=== PATIENT | male | born 1990 | race Two or more races ===

== ENCOUNTER 2017-01-11 11:42 | Emergency (ER) | payer MEDICAID, SELFPAY ==
[~2017-01-11] VITALS: Ht 177.8 cm; Wt 76.5 kg
[2017-01-11] MEDS ORDERED: SODIUM CHLORIDE 0.9% 1,000 ML IV ONE (12:08)
[2017-01-11] MEDS ORDERED: SODIUM CHLORIDE FLUSH 10ML SYR IVF ONE (12:30)
[2017-01-11] MEDS ORDERED: SODIUM CHLORIDE 0.9% 1,000ML IVBOLUS ONE (12:30)
[2017-01-11] MEDS ORDERED: ONDANSETRON 2MG/ML, 2ML IVPush ONE (12:30)
[2017-01-11 12:38] LABS: HEMATOCRIT 53.2 % (39.2-51.8); WHITE BLOOD COUNT 14.5 x10^3/uL (3.4-10)
[2017-01-11] MEDS ORDERED: ONDANSETRON 2MG/ML, 2ML ONE (12:45)
[2017-01-11 12:51] LABS: ASPARTATE AMINO TRANSFERASE 22 U/L (15-37); BLOOD UREA NITROGEN 10 mg/dL (7-18)
[2017-01-11] MEDS ORDERED: LORazepam 2 MG/ML, 1ML ONE ×2 (12:56→14:16)
[2017-01-11] MEDS: LORazepam 2 MG/ML, 1ML IVPush PRN ×2 (13:01→14:30)
[2017-01-11 15:02] VITALS: BP 115/67
== END 2017-01-11 16:23 | disposition home or self-care (01) ==
LOC: ED 14:34
DX: F10.239 Alcohol dependence with withdrawal, unspecified (principal); F32.9 Major depressive disorder, single episode, unspecified; Y90.9 Presence of alcohol in blood, level not specified
CPT/HCPCS: 36415; 74020; 80053; 81001; 82550; 83690; 85025; 96361; 96374; 96375; 96376; 99285; J2060; J2405; J7030

== ENCOUNTER 2018-03-28 06:55 | Emergency (ER) | payer OTHER ==
[~2018-03-28] VITALS: Ht 172.7 cm; Wt 81.6 kg
--- NOTE | 2018-03-28 07:15 | NUR ---
PT TO RM 15. PT STATES HE USED TO DRINK ALL THE TIME BUT NOW HE DOESN'T. FURTHER STATES HE DID DRINK 4 BEERS YESTERDAY THOUGH. THROUGH THE NIGHT HE HAS VOMITED AND SAW BLOOD IN IT, HAS HAD DIARRHEA AND HIS ABDOMEN HURTS. PT IS NAUSEATED AT THIS TIME. AWAITING EVAL
--- NOTE | 2018-03-28 07:18 | NUR ---
TO BATHROOM AND WILL OBTAIN URINE SAMPLE
[2018-03-28] MEDS ORDERED: ONDANSETRON 2MG/ML, 2ML ONE (07:59)
[2018-03-28] MEDS ORDERED: FAMOTIDINE 20 MG/2 ML ONE (07:59)
[2018-03-28] MEDS ORDERED: SODIUM CHLORIDE FLUSH 10ML SYR IVF ONE (08:00)
[2018-03-28] MEDS ORDERED: FAMOTIDINE 20 MG/2 ML IVP ONE (08:00)
[2018-03-28] MEDS ORDERED: ONDANSETRON 2MG/ML, 2ML IVPush ONE (08:00)
--- NOTE | 2018-03-28 08:07 | NUR ---
IV ESTABLISHED AND MEDICATED PER ORDERS
[2018-03-28 08:08] VITALS: BP 129/78
[2018-03-28 08:08] LABS: BASOPHILS # (AUTO) 0.03 x10^3/uL (0-0.1); BASOPHILS % (AUTO) 0 % (0-1); EOSINOPHILS # (AUTO) 0.02 x10^3/uL (0-0.4); EOSINOPHILS % (AUTO) 0 % (1-7); LYMPHOCYTES % (AUTO) 19 % (22-44); MD NO; MEAN CORPUSCULAR HEMOGLOBIN 30.5 pg (27.5-34.5); MEAN CORPUSCULAR VOLUME 92.6 fL (81-97); MEAN PLATELET VOLUME 6.7 fL (7.4-10.4); MONOCYTES % (AUTO) 5 % (2-9); NEUTROPHILS # (AUTO) 7.24 x10^3/uL (1.8-6.8); NEUTROPHILS % (AUTO) 76 % (42-75); PLATELET COUNT 387 x10^3/uL (130-400); RED BLOOD COUNT 5.33 x10^6/uL (4.38-5.82); RED CELL DISTRIBUTION WIDTH 13.9 % (9.4-14.8)
[2018-03-28 08:19] LABS: ALANINE AMINOTRANSFERASE 26 U/L (12-78); ALBUMIN 4.2 g/dL (3.4-5.0); ANION GAP 7 mmol/L (5-15); CALCIUM 9.4 mg/dL (8.5-10.1); CHLORIDE 104 mmol/L (98-107); CREATININE 0.84 mg/dL (0.7-1.3)
[2018-03-28 08:21] LABS: ALKALINE PHOSPHATASE 85 U/L (45-117); BILIRUBIN,TOTAL 0.5 mg/dL (0.2-1.0); TOTAL PROTEIN 8.6 g/dL (6.4-8.2)
--- NOTE | 2018-03-28 08:36 | NUR ---
PT STATES ABDOMINAL PAIN 2/10 AND NO NAUSEA SINCE MEDICATED
== END 2018-03-28 09:04 | disposition home or self-care (01) ==
LOC: ED 08:59
DX: K29.21 Alcoholic gastritis with bleeding (principal); R11.2 Nausea with vomiting, unspecified
CPT/HCPCS: 36415; 80053; 83690; 85025; 96374; 96375; 99283; J2405; J3490

== ENCOUNTER 2018-12-24 16:31 | Emergency (ER) | payer MEDICAID, OTHER ==
[~2018-12-24] VITALS: Ht 177.8 cm; Wt 81.0 kg
[2018-12-24 16:42] VITALS: BP 122/66
[2018-12-24] MEDS ORDERED: LIDOCAINE-MPF 1%, 5ML INFIL ONE (17:30)
[2018-12-24] MEDS ORDERED: BUPIVACAINE/PF-EPI 0.25% 1:200K SQ ONE (17:30)
[2018-12-24] MEDS ORDERED: BUPIVACAINE 0.25% ONE (17:34)
[2018-12-24] MEDS ORDERED: LIDOCAINE-MPF 1%, 5ML ONE (17:34)
--- NOTE | 2018-12-24 18:08 | NUR ---
Patient/Caregiver given discharge instructions and they have confirmed that they understand the instructions. Patient ambulatory with steady gait.
== END 2018-12-24 18:13 | disposition home or self-care (01) ==
LOC: ED 18:07
DX: K04.7 Periapical abscess without sinus (principal); F17.210 Nicotine dependence, cigarettes, uncomplicated
CPT/HCPCS: 41800; 96372; 99283

== ENCOUNTER 2019-01-16 04:01 | Emergency (ER) | payer MEDICAID ==
[~2019-01-16] VITALS: Ht 177.8 cm; Wt 76.4 kg
[2019-01-16 04:05] VITALS: BP 125/84
--- NOTE | 2019-01-16 04:14 | NUR ---
PT AMBULATES FROM TRIAGE TO ROOM WITH STEADY GAIT. AWAITING ERP AT THIS TIME.
--- NOTE | 2019-01-16 04:18 | NUR ---
PT WALKED INTO ROOM AND STATES "I WANT TO GO HOME" AND WALKED STRAIGHT OUT TO LOBBY. PT NOT SEEN BY A PROVIDER PRIOR TO DECISION TO LEAVE.
--- NOTE | 2019-01-16 04:18 | NUR ---
patient left, states he wanted to leave without seeing a doctor.
== END 2019-01-16 04:20 | disposition left against medical advice (07) ==
LOC: ED 04:18
DX: K92.0 Hematemesis (principal); Z53.21 Procedure and treatment not carried out due to patient leaving prior to being seen by health care provider

== ENCOUNTER 2019-03-26 18:45 | Emergency (ER) | payer MEDICAID ==
[~2019-03-26] VITALS: Ht 177.8 cm; Wt 81.0 kg
[2019-03-26 18:59] VITALS: BP 143/71
--- NOTE | 2019-03-26 19:08 | NUR ---
Pt presents to ed c/o si w/ plan to utilize gun from home to harm self. Pt pawned gun yesterday in fear of using on self. Pt states strife at home w/ his family that has precipitated events recently. States in last 5 days he has been binge drinking "whatever i can get my hands on" does not chronically drink a lot of etoh. Pt tachycardic and nauseated, but no other signs of w/d at this time. All belongings placed in 2/2 belongings bags and placed in locker. Roller doors in place. Sitter in hallway.
[2019-03-26 19:27] LABS: BASOPHILS # (AUTO) 0.01 x10^3/uL (0-0.1); BASOPHILS % (AUTO) 0 % (0-1); EOSINOPHILS # (AUTO) 0.01 x10^3/uL (0-0.4); EOSINOPHILS % (AUTO) 0 % (1-7); LYMPHOCYTES # (AUTO) 1.75 x10^3/uL (1-3.4); LYMPHOCYTES % (AUTO) 28 % (22-44); MD NO; MEAN CORPUSCULAR HEMOGLOBIN 31.4 pg (27.5-34.5); MEAN CORPUSCULAR HGB CONC 33.5 g/dL (33.2-36.2); MEAN CORPUSCULAR VOLUME 93.7 fL (81-97); MEAN PLATELET VOLUME 6.7 fL (7.4-10.4); MONOCYTES # (AUTO) 0.58 x10^3/uL (0.2-0.8); MONOCYTES % (AUTO) 9 % (2-9); NEUTROPHILS # (AUTO) 3.93 x10^3/uL (1.8-6.8); NEUTROPHILS % (AUTO) 63 % (42-75); PLATELET COUNT 379 x10^3/uL (130-400); RED BLOOD COUNT 5.04 x10^6/uL (4.38-5.82); RED CELL DISTRIBUTION WIDTH 14.4 % (9.4-14.8)
[2019-03-26 19:39] LABS: ALBUMIN 4.2 g/dL (3.4-5.0); ANION GAP 8 mmol/L (5-15); CALCIUM 9.1 mg/dL (8.5-10.1); CHLORIDE 107 mmol/L (98-107)
[2019-03-26 19:41] LABS: SALICYLATE LEVEL < 1.7 mg/dL (2.8-20.0)
[2019-03-26 19:42] LABS: ALANINE AMINOTRANSFERASE 27 U/L (12-78); ALKALINE PHOSPHATASE 89 U/L (45-117); BILIRUBIN,TOTAL 0.4 mg/dL (0.2-1.0); CREATININE 1.01 mg/dL (0.7-1.3); TOTAL PROTEIN 8.4 g/dL (6.4-8.2)
--- NOTE | 2019-03-26 20:12 | NUR ---
Pt amb w/ steady gait to rr and supplied ua. Sent to lab. C/o increased nausea. Inquired about nausea meds. Awaiting new orders.
[2019-03-26] MEDS ORDERED: ONDANSETRON ODT 4 MG ONE (20:14)
[2019-03-26] MEDS ORDERED: ONDANSETRON ODT 4 MG PO ONE (20:30)
[2019-03-26 20:31] LABS: AMPHETAMINE SCREEN, URINE Positive (Negative); BARBITURATE SCREEN, URINE Negative (Negative); BENZODIAZEPINE SCREEN, URINE Negative (Negative); CANNABINOID SCREEN, URINE Positive (Negative); COCAINE SCREEN, URINE Negative (Negative); METHADONE SCREEN, URINE Negative (Negative); OPIATE SCREEN, URINE Negative (Negative)
--- NOTE | 2019-03-26 21:12 | NUR ---
Pt resting comfortably on gurney. Rr even and unlabored. Nadn.
[2019-03-26] MEDS ORDERED: PROMETHAZINE 25 MG/ML, 1ML ONE (22:24)
--- NOTE | 2019-03-26 22:31 | NUR ---
Pt still nauseated and dry heaving. Pa made aware. Pa verbal order of 25 mg phenergan im.
[2019-03-26] MEDS ORDERED: PROMETHAZINE 25 MG/ML, 1ML IM ONE (23:00)
--- NOTE | 2019-03-27 00:10 | NUR ---
PT sleeping comfortably on gurney. Rr even and unlabored. Nadn. Awaiting telepsych.
--- NOTE | 2019-03-27 00:41 | NUR ---
Telepsych consulted on pt. Awaiting telepsych.
--- NOTE | 2019-03-27 01:00 | NUR ---
Report to Alexi BELL.
--- NOTE | 2019-03-27 01:01 | NUR ---
Previous RN placed telepsych computer and lumber kiln operator in the same room. Established communication between the three. Awaiting completion of consult
--- NOTE | 2019-03-27 02:48 | NUR ---
PSYCH PACKET FAXED TO [facility].
--- NOTE | 2019-03-27 03:34 | NUR ---
DECLINED BY [facility] DUE TO STAFFING.
--- NOTE | 2019-03-27 03:34 | NUR ---
PATIENT EXCEPTED BY [facility] . TRANSPORT TO SET FOR [id number]
--- NOTE | 2019-03-27 05:37 | NUR ---
REM HERE TO TRANSPORT PATIENT TO [facility].
== END 2019-03-27 05:49 ==
LOC: ED 03-27
DX: R45.851 Suicidal ideations (principal); F32.9 Major depressive disorder, single episode, unspecified; F41.9 Anxiety disorder, unspecified
CPT/HCPCS: 36415; 80053; 80307; 85025; 96372; 99285; J2550; Q0162

== ENCOUNTER 2019-05-21 08:22 | Emergency (ER) | payer MEDICAID ==
[~2019-05-21] VITALS: Ht 177.8 cm; Wt 87.8 kg
--- NOTE | 2019-05-21 08:47 | NUR ---
PT TO ROOM.
[2019-05-21 09:25] LABS: BASOPHILS # (AUTO) 0.03 x10^3/uL (0-0.1); BASOPHILS % (AUTO) 0 % (0-1); EOSINOPHILS # (AUTO) 0.17 x10^3/uL (0-0.4); EOSINOPHILS % (AUTO) 3 % (1-7); LYMPHOCYTES % (AUTO) 26 % (22-44); MD NO; MEAN CORPUSCULAR HEMOGLOBIN 30.6 pg (27.5-34.5); MEAN CORPUSCULAR HGB CONC 32.9 g/dL (33.2-36.2); MEAN CORPUSCULAR VOLUME 93.2 fL (81-97); MEAN PLATELET VOLUME 6.4 fL (7.4-10.4); MONOCYTES # (AUTO) 0.58 x10^3/uL (0.2-0.8); MONOCYTES % (AUTO) 9 % (2-9); NEUTROPHILS # (AUTO) 3.98 x10^3/uL (1.8-6.8); NEUTROPHILS % (AUTO) 62 % (42-75); PLATELET COUNT 426 x10^3/uL (130-400); RED BLOOD COUNT 4.25 x10^6/uL (4.38-5.82); RED CELL DISTRIBUTION WIDTH 13.1 % (9.4-14.8)
--- NOTE | 2019-05-21 09:37 | NUR ---
PT STS LEG SWLLING BILAT X1 MONTH. SCAB/INFLAMMATION TO FRONT AND BACK L LEG X2 DAYS. METH ADDICT, MUTLITPLE SCABS/PICKING ON LEGS. STS STOPPED DRINKING/DRUGS 5 DAYS AGO. DENEIS HX SEIZURES. STS ITCHING ON LEGS BUT PAIN IN L LEG WHEN WALKING. HOMELESS. AWAITING LAB RESULTS.
[2019-05-21 09:39] LABS: ALANINE AMINOTRANSFERASE 25 U/L (12-78); ANION GAP 6 mmol/L (5-15); CALCIUM 8.2 mg/dL (8.5-10.1); CHLORIDE 113 mmol/L (98-107); CREATININE 0.93 mg/dL (0.7-1.3)
[2019-05-21 09:43] LABS: ALKALINE PHOSPHATASE 82 U/L (45-117); BILIRUBIN,TOTAL 0.4 mg/dL (0.2-1.0); TOTAL PROTEIN 6.8 g/dL (6.4-8.2)
--- NOTE | 2019-05-21 09:58 | NUR ---
bnp elevated, pa aware, to see pt. as
[2019-05-21 10:21] VITALS: BP 147/95
== END 2019-05-21 10:24 | disposition home or self-care (01) ==
LOC: ED 09:01
DX: R60.0 Localized edema (principal); R79.89 Other specified abnormal findings of blood chemistry; R20.2 Paresthesia of skin; F15.10 Other stimulant abuse, uncomplicated; F10.10 Alcohol abuse, uncomplicated; Y90.9 Presence of alcohol in blood, level not specified
CPT/HCPCS: 80053; 82962; 83880; 85025; 99283

== ENCOUNTER 2019-09-20 21:03 | Emergency (ER) | payer MEDICAID ==
[~2019-09-20] VITALS: Ht 177.8 cm; Wt 79.4 kg
--- NOTE | 2019-09-20 21:08 | NUR ---
NIL X 1
--- NOTE | 2019-09-20 21:27 | NUR ---
PT IN W IN [facility] WITH MIRNA TORRES, AT BS FOR PT HISTORY AND ASSESSMENT. PT EDUCATED ON ER PROCESS AND VERBALIZES UNDERSTANDING. CALL LIGHT IS WITHIN REACH.
[2019-09-20] MEDS ORDERED: FAMOTIDINE 20 MG/2 ML IV ONE (21:30)
[2019-09-20] MEDS ORDERED: SODIUM CHLORIDE FLUSH 10ML SYR IVF ONE (21:30)
[2019-09-20] MEDS ORDERED: ONDANSETRON 2MG/ML, 2ML IVPush ONE (21:30)
[2019-09-20] MEDS ORDERED: MAALOX/HYOSCYAMINE/LIDOCAINE 45 ML BTL PO ONE (21:30)
[2019-09-20] MEDS ORDERED: LORazepam 2 MG/ML, 1ML IVPush ONE (21:30)
[2019-09-20] MEDS ORDERED: SODIUM CHLORIDE 0.9% 1,000ML IVBOLUS ONE (21:30)
[2019-09-20] MEDS ORDERED: LORazepam 2 MG/ML, 1ML ONE (21:56)
[2019-09-20] MEDS ORDERED: MAALOX/HYOSCYAMINE/LIDOCAINE 45 ML BTL ONE (21:56)
[2019-09-20] MEDS ORDERED: FAMOTIDINE 20 MG/2 ML ONE (21:56)
[2019-09-20] MEDS ORDERED: ONDANSETRON 2MG/ML, 2ML ONE (21:56)
[2019-09-20 21:59] LABS: BASOPHILS # (AUTO) 0.04 x10^3/uL (0-0.1); BASOPHILS % (AUTO) 1 % (0-1); EOSINOPHILS # (AUTO) 0.23 x10^3/uL (0-0.4); EOSINOPHILS % (AUTO) 3 % (1-7); LYMPHOCYTES # (AUTO) 2.75 x10^3/uL (1-3.4); LYMPHOCYTES % (AUTO) 33 % (22-44); MD NO; MEAN CORPUSCULAR HGB CONC 33.3 g/dL (33.2-36.2); MEAN CORPUSCULAR VOLUME 93.1 fL (81-97); MEAN PLATELET VOLUME 6.8 fL (7.4-10.4); MONOCYTES # (AUTO) 0.63 x10^3/uL (0.2-0.8); MONOCYTES % (AUTO) 8 % (2-9); NEUTROPHILS # (AUTO) 4.63 x10^3/uL (1.8-6.8); NEUTROPHILS % (AUTO) 56 % (42-75); PLATELET COUNT 291 x10^3/uL (130-400); RED BLOOD COUNT 4.61 x10^6/uL (4.38-5.82); RED CELL DISTRIBUTION WIDTH 14.8 % (9.4-14.8)
--- NOTE | 2019-09-20 22:02 | NUR ---
pt medicated per mar at this time.
[2019-09-20 22:07] LABS: ALANINE AMINOTRANSFERASE 30 U/L (12-78); ALBUMIN 3.8 g/dL (3.4-5.0); ANION GAP 9 mmol/L (5-15); CALCIUM 8.8 mg/dL (8.5-10.1); CHLORIDE 106 mmol/L (98-107); CREATININE 0.78 mg/dL (0.7-1.3)
[2019-09-20 22:09] LABS: ALKALINE PHOSPHATASE 87 U/L (45-117); BILIRUBIN,TOTAL 0.6 mg/dL (0.2-1.0); TOTAL PROTEIN 7.3 g/dL (6.4-8.2)
--- NOTE | 2019-09-20 22:54 | NUR ---
PT REPORTS FEELING BETTER POST MEDICATIONS AND FLUIDS. PT AMBULATES TO RESTROOM WITH STEADY GAIT. PT BACK IN [facility] AT THIS TIME.
--- NOTE | 2019-09-20 23:20 | NUR ---
PT D/C WITH D/C SUMMARY AND SCRIPTS. ALL QUESTIONS ANSWERED. PT PIV D/C WITH TIP INTACT. PT AMBULATES TO REGISTRATION DESK WITH STEADY GAIT FOR D/C AND DENIES ANY OTHER NEEDS PERTAINING TO THIS VISIT. VSS AND UPDATED IN EMR PRIOR TO PT D/C.
[2019-09-20 23:22] VITALS: BP 127/91
== END 2019-09-20 23:32 | disposition home or self-care (01) ==
LOC: ED 23:00
DX: K29.20 Alcoholic gastritis without bleeding (principal); F10.10 Alcohol abuse, uncomplicated; Y90.9 Presence of alcohol in blood, level not specified
CPT/HCPCS: 36415; 80053; 80307; 83690; 85025; 96361; 96374; 96375; 99284; J2060; J2405; J3490; J7030

== ENCOUNTER 2020-04-03 18:53 | Emergency (ER) | payer MEDICAID ==
[~2020-04-03] VITALS: Ht 177.8 cm; Wt 83.9 kg
--- NOTE | 2020-04-03 19:21 | NUR ---
PT IN BED ON ROOM AIR SPO2 @96%. PT STATES " ITHINKI HAVE THE COVID
[2020-04-03 20:21] VITALS: BP 128/72
--- NOTE | 2020-04-03 20:30 | NUR ---
pt walked out self with steady gait. discussed if s&s worsen return to the er
== END 2020-04-03 20:32 | disposition home or self-care (01) ==
LOC: ED 20:30
DX: J00 Acute nasopharyngitis [common cold] (principal); Z20.822 Contact with and (suspected) exposure to COVID-19; R05 Cough; R19.7 Diarrhea, unspecified; R06.02 Shortness of breath
CPT/HCPCS: 71045; 87635; 99284

== ENCOUNTER 2020-06-20 20:20 | Emergency (ER) | payer MEDICAID ==
[~2020-06-20] VITALS: Ht 177.8 cm; Wt 87.0 kg
[2020-06-20] MEDS ORDERED: FLUORESCEIN OPHTHALMIC 1 MG STRIP ONE (20:43)
[2020-06-20] MEDS ORDERED: PROPARACAINE OPHTH 0.5%, 15ML ONE (20:44)
[2020-06-20] MEDS ORDERED: FLUORESCEIN/BENOXINATE 5 ML DROPS OP ONE (21:00)
[2020-06-20] MEDS ORDERED: PROPARACAINE OPHTH 0.5%, 15ML EACHEYE ONE (21:00)
--- NOTE | 2020-06-20 21:30 | NUR ---
PT EYES IRRIGATED, PT STATED "HIS EYES FELL BETTER"
[2020-06-20 21:53] VITALS: BP 132/74
== END 2020-06-20 21:56 | disposition home or self-care (01) ==
LOC: ED 21:01
DX: H10.213 Acute toxic conjunctivitis, bilateral (principal)
CPT/HCPCS: 99283